=== PATIENT | female | born 1965 | race Caucasian/White ===

== ENCOUNTER 2021-03-15 09:32 | Observation (INO) ==
[2021-03-15 12:19] LABS: Basophils # 0.1 10*3/uL (0.0-0.2); Basophils % 0.7 % (0.0-0.8); Eosinophils # 0.4 10*3/uL (0.0-0.87); Hematocrit 26.7 VOL% (35.7-47.0); Immature Granulocytes % 0.5 %; Immature Granulocytes Absolute 0.05 #; Lymphocytes # 1.8 10*3/uL (1.4-4.0); Lymphocytes % 16.4 % (21.3-54.2); Mean Platelet Volume 9.6 FL (9.6-12.0); Neutrophils % 74.4 % (38.7-73.9); Platelet Count 621 T/CUMM (130-400); Red Blood Count 3.14 MC/CUMM (3.8-5.5); Red Cell Distribution Width 16.6 % (9.3-17.3); White Blood Count 10.8 T/CUMM (4-12)
[2021-03-15 12:39] LABS: Albumin 3.6 G/DL (3.4-5.0); Bilirubin,Total 0.4 MG/DL (0.20-1.00); Calcium 10.1 MG/DL (8.5-10.1); Osmolality,Calculated 282.8 MOS/KG (273-304); Total Protein 8.1 G/DL (6.4-8.2)
[2021-03-15] MEDS ORDERED: ONDANSETRON 4 MG/2 ML VIAL IV STA (14:05)
[2021-03-15] MEDS ORDERED: MORPHINE 2 MG/1 ML SYRINGE IV STA (14:05)
[2021-03-15] MEDS ORDERED: LACTATED RINGERS 1,000 ML IV ONE (14:05)
[2021-03-15] MEDS ORDERED: MAGNESIUM SULF RIDER 2 GM/50 ML PREMIX IV STA (14:06)
[2021-03-15 14:48] LABS: PT Patient Result 10.9 SECS (10.5-12.0); Partial Thromboplastin Time 22.4 SECS (23.8-32.1)
[2021-03-15] MEDS ORDERED: PANTOPRAZOLE 40 MG VIAL IV STA (15:54)
[2021-03-15 17:14] LABS: Bilirubin,Urine Negative (Negative); Blood, Urine Negative (Negative); Glucose,Urine (UA) >=500 mg/dL (Negative); Hyaline Casts,Urine 41 /LPF (0-3); Ketones,Urine Negative (Negative); Mucus,Urine Occasional /LPF (Occasional); Nitrite,Urine Negative (Negative); Protein,Urine 100 MG/DL; RBC,Urine 2 /HPF (0-4); Squamous Epithelial Cell,Urine Few /HPF (0-10); Urine Appearance CLOUDY (Clear); Urine Color Amber (Yellow); Urine Specific Gravity 1.024 (1.001-1.035); Urine Urobilinogen < 2.0 EU/DL (<2.0)
[2021-03-15] MEDS ORDERED: MORPHINE 2 MG/1 ML SYRINGE IV PRN (17:27)
[2021-03-15] MEDS ORDERED: ONDANSETRON 4 MG/2 ML VIAL IV PRN (17:27)
[2021-03-15] MEDS ORDERED: GLUCAGON 1 MG VIAL IM PRN (17:27)
[2021-03-15] MEDS ORDERED: DEXTROSE 10% 250 ML BAG IV PRN (17:36)
[2021-03-15] MEDS: PANTOPRAZOLE INJ 200 MG in SODIUM CHLORIDE 0.9% 250 ML IV SCH (19:28)
[2021-03-15 23:29] LABS: Hematocrit 22.1 VOL% (35.7-47.0); Hemoglobin 6.6 GM/DL (12.0-16.0)
[2021-03-15] MEDS: INSULIN LISPRO 100 UNIT/ML SUBCUT SCH (23:29)
[2021-03-15] MEDS ORDERED: SODIUM CHLORIDE 0.9% 1,000 ML IV PRN (23:45)
[2021-03-16 04:00] LABS: Basophils # 0.1 10*3/uL (0.0-0.2); Basophils % 0.7 % (0.0-0.8); Eosinophils # 0.7 10*3/uL (0.0-0.87); Eosinophils % 8.5 % (0.00-10.9); Hematocrit 28.1 VOL% (35.7-47.0); Hemoglobin 8.5 GM/DL (12.0-16.0); Immature Granulocytes % 0.4 %; Immature Granulocytes Absolute 0.03 #; Lymphocytes # 2.4 10*3/uL (1.4-4.0); Lymphocytes % 29.1 % (21.3-54.2); Mean Corpuscular HGB Conc 30.2 GM/DL (32-36); Mean Corpuscular Volume 85.4 FL (87-102); Mean Platelet Volume 9.2 FL (9.6-12.0); Monocytes % 6.3 % (1.7-12.7); Platelet Count 454 T/CUMM (130-400); Red Blood Count 3.29 MC/CUMM (3.8-5.5); Red Cell Distribution Width 17.4 % (9.3-17.3); White Blood Count 8.3 T/CUMM (4-12)
[2021-03-16 04:21] LABS: Albumin 2.9 G/DL (3.4-5.0); Bilirubin,Total 0.8 MG/DL (0.20-1.00); Calcium 8.5 MG/DL (8.5-10.1); Osmolality,Calculated 283.5 MOS/KG (273-304); Potassium 4.3 MMOL/L (3.5-5.1); Total Protein 6.5 G/DL (6.4-8.2)
[2021-03-16] MEDS: SODIUM CHLORIDE 0.45% 1,000 ML IV SCH ×4 (08:00→23:12)
[2021-03-16] MEDS: INSULIN LISPRO 100 UNIT/ML SUBCUT SCH ×4 (08:52→21:43)
[2021-03-16 08:59] LABS: Hematocrit 27.3 VOL% (35.7-47.0); Hemoglobin 8.5 GM/DL (12.0-16.0)
[2021-03-16] MEDS ORDERED: GLUCAGON 1 MG VIAL IM PRN (12:13)
[2021-03-16] MEDS ORDERED: DEXTROSE 50% 25 GM/50 ML VIAL IV PRN (12:13)
[2021-03-16] MEDS: PANTOPRAZOLE INJ 200 MG in SODIUM CHLORIDE 0.9% 250 ML IV SCH (18:17)
[2021-03-17 05:42] LABS: Basophils # 0.1 10*3/uL (0.0-0.2); Basophils % 0.8 % (0.0-0.8); Eosinophils # 0.8 10*3/uL (0.0-0.87); Eosinophils % 10.9 % (0.00-10.9); Hematocrit 30.1 VOL% (35.7-47.0); Hemoglobin 9.1 GM/DL (12.0-16.0); Immature Granulocytes % 0.3 %; Immature Granulocytes Absolute 0.02 #; Lymphocytes # 2.7 10*3/uL (1.4-4.0); Lymphocytes % 36.4 % (21.3-54.2); Mean Corpuscular HGB Conc 30.2 GM/DL (32-36); Mean Platelet Volume 9.4 FL (9.6-12.0); Monocytes % 6.8 % (1.7-12.7); Neutrophils % 44.8 % (38.7-73.9); Platelet Count 475 T/CUMM (130-400); Red Blood Count 3.54 MC/CUMM (3.8-5.5); Red Cell Distribution Width 17.1 % (9.3-17.3); White Blood Count 7.5 T/CUMM (4-12)
[2021-03-17 06:12] LABS: Albumin 2.9 G/DL (3.4-5.0); Bilirubin,Total 0.4 MG/DL (0.20-1.00); Calcium 8.2 MG/DL (8.5-10.1); Osmolality,Calculated 280.5 MOS/KG (273-304); Potassium 4.7 MMOL/L (3.5-5.1); Total Protein 6.7 G/DL (6.4-8.2)
[2021-03-17 07:50] VITALS: BP 152/58
[2021-03-17] MEDS: INSULIN LISPRO 100 UNIT/ML SUBCUT SCH ×2 (07:50→12:11)
[2021-03-17] MEDS: SODIUM CHLORIDE 0.45% 1,000 ML IV SCH (12:11)
== END 2021-03-17 12:20 | disposition home or self-care (01) ==
LOC: SUATTDRO → N.ED 09:32 → N.EDINP 09:32 → N.3E 03-16 09:48
PROVIDERS: ADMIT Internal Medicine; ATTEND Internal Medicine